=== PATIENT | male | born 1975 | race Hispanic/Latino ===

== ENCOUNTER 2018-08-13 08:12 | Emergency (ER) | payer BC ==
--- NOTE | 2018-08-13 09:14 | RAD REPORT ---
EXAM DESCRIPTION: RAD - Chest Pa And Lat (2 Views) - 08/13/2018 9:08 am CLINICAL HISTORY: chest pain Chest pain. COMPARISON: No comparisons FINDINGS: The lungs are clear. The heart is normal in size. No displaced fractures. IMPRESSION: No acute or concerning finding suspected.
--- NOTE | 2018-08-13 09:16 | ER ---
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 I think it might be a bruise?". Transition of care: patient was not received from another setting of care. Onset of symptoms was August 12, 2018. Risk Assessment: Do you want to hurt yourself or someone else? Patient reports no desire to harm self or others. Initial Sepsis Screen: Does the patient meet any 2 criteria? No. Patient's initial sepsis screen is negative. Does the patient have a suspected source of infection? No. Patient's initial sepsis screen is negative. Care prior to arrival: None. 08:25 Method Of Arrival: Ambulatory ss 08:25 Acuity: STEVAN 4 ss Triage Assessment: 08:25 General: Appears in no apparent distress. uncomfortable, well groomed, well developed, sv Behavior is calm, cooperative, appropriate for age. General: Reports pain occurred after he bent forward at work and he wears like suspenders and they have metal clips and the pain is right under where the metal is at. Pain: Complains of pain in anterior aspect of left upper chest Pain currently is 6 out of 10 on a pain scale. Quality of pain is described as sore Pain began 1 day ago. Is intermittent, episodic, Aggravated by exercise, increased activity. Neuro: Level of Consciousness is awake, alert, obeys commands, Oriented to person, place, time, situation, Moves all extremities. Full function Gait is steady, Speech is normal. Cardiovascular: Patient's skin is warm and dry. Respiratory: Respiratory effort is even, unlabored, Respiratory pattern is regular, symmetrical. Derm: Skin is pink, warm \\T\\ dry. Musculoskeletal: Range of motion: intact in all extremities. Historical: - Allergies: 08: No Known Allergies; ss - Home Meds: 08:28 None [Active]; ss - PMHx: 08:28 None; ss - PSHx: 08:28 None; ss - Immunization history:: Adult Immunizations up to date. - Social history:: Smoking status: Patient/guardian denies using tobacco. - Ebola Screening: : Patient denies exposure to infectious person Patient denies travel to an Ebola-affected area in the 21 days before illness onset. - Family history:: not pertinent. Screenin:33 Abuse screen: Denies threats or abuse. Denies injuries from another. Nutritional sv screening: No deficits noted. Tuberculosis screening: No symptoms or risk factors identified. Fall Risk None identified. Assessment: 09:30 Reassessment: Patient appears in no apparent distress at this time. No changes from sv previously documented assessment. Patient and/or family updated on plan of care and expected duration. Pain level reassessed. Patient is alert, oriented x 3, equal unlabored respirations, skin warm/dry/pink. Vital Signs: 08:28 Resp 16; Weight 99.79 kg; Height 5 ft. 11 in. (180.34 cm); Pain 6/10; ss 08:29 BP 144 / 91; Pulse 81; Temp 98.7; Pulse Ox 98% ; sv 09:30 BP 140 / 88; Pulse 82; Resp 16; Pulse Ox 99% ; sv 08:28 Body Mass Index 30.68 (99.79 kg, 180.34 cm) ED Course: 08:18 Patient arrived in ED. mr 08:18 Heladio Vivar DO is Private Physician. mr 08:22 Jonah Corrigan MD is Attending Physician. dre 08:23 Deborah Umanzor, CINDY is Primary Nurse. sv 08:28 Triage completed. ss 08:28 Arm band placed on right wrist. ss 08:33 Patient has correct armband on for positive identification. Placed in gown. Bed in low sv position. Call light in reach. Pulse ox on. NIBP on. Door closed. Head of bed elevated. 09:05 Patient moved to radiology via wheelchair. kw 09:05 X-ray completed. Patient tolerated procedure well. kw 09:05 Patient moved back from radiology. kw 09:06 Chest Pa And Lat (2 Views) In Process Unspecified. EDMS 09:13 Heladio Vivar DO is Referral Physician. dre 09:30 No provider procedures requiring assistance completed. Patient did not have IV access sv during this emergency room visit. Patient maintains SpO2 saturation greater than 95% on room air. Administered Medications: 08:27 CANCELLED (Duplicate Order): Aspirin Chewable Tablet 324 mg PO once; 81 mg tablets x 4 dre 08:27 CANCELLED (Duplicate Order): NS 0.9% 1000 ml IV at 125 ml/hr continuous dre Outcome: 09:15 Discharge ordered by . dre 09:30 Discharged to home ambulatory. sv 09:30 Condition: stable 09:30 Discharge instructions given to patient, Instructed on discharge instructions, follow up and referral plans. medication usage, Demonstrated understanding of instructions, follow-up care, medications, Prescriptions given X 1. 09:30 Patient left the ED. sv Signatures: Dispatcher [employer] EDDeborah Teran RN RN sv Jonah Corrigan MD MD cha Rivera, Mary mr Smirch, Shelby, RN RN Araceli Antonio Corrections: (The following items were deleted from the chart) 10:07 10:05 Patient left the ED. sv sv
--- NOTE | 2018-08-13 09:16 | EDPHYS ---
Physician Documentation [facility] Name: Aiden Iverson Age: 42 yrs Sex: Male : 1975 Arrival Date: 08/13/2018 Time: 08:18 Bed 5 Private MD: Heladio Vivar H ED Physician Jonah Corrigan HPI: 08/13 08:28 This 42 yrs old Male presents to ER via Unassigned with complaints of Chest dre Pain. 08:28 The patient or guardian reports chest pain that is located primarily in the anterior dre chest wall, left. Onset: yesterday. The pain does not radiate. Associated signs and symptoms: The patient has no apparent associated signs or symptoms. The chest pain is described as sore, in left upper chest . leaned onto hrness. Duration: The patient or guardian reports a single episode, that is still ongoing. Modifying factors: The symptoms are alleviated by remaining still, the symptoms are aggravated by breathing, cough, movement, palpation of area, twisting torso. Severity of pain: At its worst the pain was mild in the emergency department the pain is unchanged. The patient has not experienced similar symptoms in the past. Historical: - Allergies: 08:28 No Known Allergies; ss - Home Meds: 08: None [Active]; ss - PMHx: 08: None; ss - PSHx: 08:28 None; ss - Immunization history:: Adult Immunizations up to date. - Social history:: Smoking status: Patient/guardian denies using tobacco. - Ebola Screening: : Patient denies exposure to infectious person Patient denies travel to an Ebola-affected area in the 21 days before illness onset. - Family history:: not pertinent. ROS: 08:28 Constitutional: Negative for fever, chills, and weight loss, Eyes: Negative for injury, dre pain, redness, and discharge, ENT: Negative for injury, pain, and discharge, Neck: Negative for injury, pain, and swelling, Respiratory: Negative for shortness of breath, cough, wheezing, and pleuritic chest pain, Abdomen/GI: Negative for abdominal pain, nausea, vomiting, diarrhea, and constipation, Back: Negative for injury and pain, : Negative for injury, bleeding, discharge, and swelling, MS/Extremity: Negative for injury and deformity, Skin: Negative for injury, rash, and discoloration, Neuro: Negative for headache, weakness, numbness, tingling, and seizure, Psych: Negative for depression, anxiety, suicide ideation, homicidal ideation, and hallucinations, Allergy/Immunology: Negative for hives, rash, and allergies, Endocrine: Negative for neck swelling, polydipsia, polyuria, polyphagia, and marked weight changes, Hematologic/Lymphatic: Negative for swollen nodes, abnormal bleeding, and unusual bruising. 08:28 Cardiovascular: Positive for chest pain, with movement, of the left clavicle and anterior aspect of left upper chest. Exam: 08:28 Constitutional: This is a well developed, well nourished patient who is awake, alert, dre and in no acute distress. Head/Face: Normocephalic, atraumatic. Eyes: Pupils equal round and reactive to light, extra-ocular motions intact. Lids and lashes normal. Conjunctiva and sclera are non-icteric and not injected. Cornea within normal limits. Periorbital areas with no swelling, redness, or edema. ENT: Nares patent. No nasal discharge, no septal abnormalities noted. Tympanic membranes are normal and external auditory canals are clear. Oropharynx with no redness, swelling, or masses, exudates, or evidence of obstruction, uvula midline. Mucous membranes moist. Neck: Trachea midline, no thyromegaly or masses palpated, and no cervical lymphadenopathy. Supple, full range of motion without nuchal rigidity, or vertebral point tenderness. No Meningismus. Cardiovascular: Regular rate and rhythm with a normal S1 and S2. No gallops, murmurs, or rubs. Normal PMI, no JVD. No pulse deficits. Respiratory: Lungs have equal breath sounds bilaterally, clear to auscultation and percussion. No rales, rhonchi or wheezes noted. No increased work of breathing, no retractions or nasal flaring. Abdomen/GI: Soft, non-tender, with normal bowel sounds. No distension or tympany. No guarding or rebound. No evidence of tenderness throughout. Back: No spinal tenderness. No costovertebral tenderness. Full range of motion. Male : Normal genitalia with no discharge or lesions. Skin: Warm, dry with normal turgor. Normal color with no rashes, no lesions, and no evidence of cellulitis. MS/ Extremity: Pulses equal, no cyanosis. Neurovascular intact. Full, normal range of motion. Neuro: Awake and alert, GCS 15, oriented to person, place, time, and situation. Cranial nerves II-XII grossly intact. Motor strength 5/5 in all extremities. Sensory grossly intact. Cerebellar exam normal. Normal gait. Psych: Awake, alert, with orientation to person, place and time. Behavior, mood, and affect are within normal limits. 08:28 Chest/axilla: Inspection: normal, Palpation: is normal, Axilla: are normal, no acute changes, Lymph nodes: lymphadenopathy is not appreciated. Vital Signs: 08:28 Resp 16; Weight 99.79 kg; Height 5 ft. 11 in. (180.34 cm); Pain 6/10; ss 08:29 BP 144 / 91; Pulse 81; Temp 98.7; Pulse Ox 98% ; sv 09:30 BP 140 / 88; Pulse 82; Resp 16; Pulse Ox 99% ; sv 08:28 Body Mass Index 30.68 (99.79 kg, 180.34 cm) ss MDM: 08:22 Patient medically screened. [facility] 08:30 Data reviewed: vital signs, nurses notes, EKG, radiologic studies, plain films. [facility] 08/13 08:23 Order name: EKG; Complete Time: 08:24 [facility] 08/13 08:32 Order name: Chest Pa And Lat (2 Views) EDNE 08/13 08:23 Order name: EKG - Nurse/Tech; Complete Time: 08:35 [facility] 08/13 08:23 Order name: O2 Per Protocol; Complete Time: 08:34 [facility] 08/13 08:23 Order name: O2 Sat Monitoring; Complete Time: 08:35 [facility] Administered Medications: 08:27 CANCELLED (Duplicate Order): Aspirin Chewable Tablet 324 mg PO once; 81 mg tablets x 4 dre 08:27 CANCELLED (Duplicate Order): NS 0.9% 1000 ml IV at 125 ml/hr continuous dre Disposition: 08/13/18 09:15 Discharged to Home. Impression: Other chest pain - chest wall pain, Strain of muscle and tendon of front wall of thorax. - Condition is Stable. - Discharge Instructions: Nonspecific Chest Pain, Chest Wall Pain, Nonspecific Chest Pain, [id number], Aspirin and Your Heart. - Prescriptions for Ibuprofen 600 mg Oral Tablet - take 1 tablet by ORAL route every 8 hours As needed take with food; 21 tablet. - Medication Reconciliation Form, Thank You Letter, Antibiotic Education, Prescription Opioid Use form. - Follow up: Heladio Vivar; When: 2 - 3 days; Reason: Recheck today's complaints, Continuance of care, Re-evaluation by your physician. - Problem is new. - Symptoms have improved. Signatures: Dispatcher [employer] Deborah Fernandez RN RN sv Anderson, Corey, MD MD cha Smirch, Shelby, RN RN ss Corrections: (The following items were deleted from the chart) 08: 08:23 Aspirin Chewable Tablet 324 mg PO once; 81 mg tablets x 4 ordered. [facility] dre 08:27 08:23 NS 0.9% 1000 ml IV at 125 ml/hr continuous ordered. [facility] dre 08:31 08:24 BASIC METABOLIC PANEL+C.LAB.BRZ ordered. EDMS EDMS 08:31 08:24 CBC+H.LAB.BRZ ordered. EDMS EDMS 08:31 08:24 HEPATIC FUNCTION+C.LAB.BRZ ordered. EDMS EDMS 08:31 08:24 MAGNESIUM+C.LAB.BRZ ordered. EDMS EDMS 08:31 08:24 PROBNP+C.LAB.BRZ ordered. EDMS EDMS 08:31 08:24 PROTIME (+INR)+COAG.LAB.BRZ ordered. EDMS EDMS 08:31 08:24 TROPONIN (EMERG DEPT USE ONLY)+C.LAB.BRZ ordered. EDMS EDMS 08:31 08:24 LIPASE+C.LAB.BRZ ordered. EDMS EDMS 08:31 08:24 URINE DRUG SCREEN+CHEM UR.LAB.BRZ ordered. EDMS EDMS 08:34 08:23 Cardiac monitoring ordered. dre sv 08:35 08:23 IV Saline Lock ordered. dre sv 08:35 08:23 Labs collected and sent ordered. [facility] sv 09:07 08:24 Chest Single View+RAD.RAD.BRZ ordered. EDNE EDMS 10:05 09:15 08/13/2018 09:15 Discharged to Home. Impression: Other chest pain - chest wall sv pain; Strain of muscle and tendon of front wall of thorax. Condition is Stable. Discharge Instructions: Nonspecific Chest Pain, Chest Wall Pain, Nonspecific Chest Pain, [id number], Aspirin and Your Heart. Prescriptions for Ibuprofen 600 mg Oral Tablet - take 1 tablet by ORAL route every 8 hours As needed take with food; 21 tablet. and Forms are Medication Reconciliation Form, Thank You Letter, Antibiotic Education, Prescription Opioid Use. Follow up: Heladio Vivar; When: 2 - 3 days; Reason: Recheck today's complaints, Continuance of care, Re-evaluation by your physician. Problem is new. Symptoms have improved. dre
--- NOTE | 2018-08-13 14:50 | EKG ---
Test Date: 2018-08-13 Test Time: 08:31:17 Assistant Case Manager: EMIGDIO MEASUREMENT RESULTS: Intervals: Rate: 72 WV: 158 QRSD: 80 QT: 380 QTc: 416 [place]: P: 71 WV: 158 QRS: 37 T: 39 INTERPRETIVE STATEMENTS: Normal sinus rhythm Normal ECG No previous ECG available for comparison Electronically Signed On 08-13-18 14:49:40 NON LICENSED [employer] by Sinan Chiu
== END 2018-08-13 10:05 | disposition home or self-care (01) ==
LOC: ER 08:12
DX: S29.011A Strain of muscle and tendon of front wall of thorax, initial encounter (principal); X58.XXXA Exposure to other specified factors, initial encounter; R07.89 Other chest pain
CPT/HCPCS: 71046; 93005; 99284